=== PATIENT | female | born 1965 | race Caucasian/White ===

== ENCOUNTER → 2017-06-02 | Outpatient (REF) | payer MEDICARE, BC ==
[2017-06-02 16:27] LABS: BLOOD UREA NITROGEN 15 MG/DL (7-18); CREATININE FOR GFR 0.83 MG/DL (0.55-1.02); GLOMERULAR FILTRATION RATE > 60.0 (>51)
== END ==
LOC: M LABDRAW1 15:44
PROVIDERS: ATTEND Physical Medicine & Rehabilitation
DX: M51.36 Other intervertebral disc degeneration, lumbar region (principal)

== ENCOUNTER → 2017-06-09 | Outpatient (REF) | payer BC, MEDICARE ==
[2017-06-09 16:42] LABS: BLOOD UREA NITROGEN 14 MG/DL (7-18); CREATININE FOR GFR 0.71 MG/DL (0.55-1.02); GLOMERULAR FILTRATION RATE > 60.0 (>51)
== END ==
LOC: M LABDRAW1 15:38
PROVIDERS: ATTEND Physical Medicine & Rehabilitation
DX: M51.36 Other intervertebral disc degeneration, lumbar region (principal)

== ENCOUNTER → 2017-11-21 | Outpatient (REF) | payer BC, MEDICARE ==
[2017-11-21 16:08] LABS: CREATININE FOR GFR 0.76 MG/DL (0.55-1.02); GLOMERULAR FILTRATION RATE > 60.0 (>51)
[2017-11-21 16:08] LABS: BLOOD UREA NITROGEN 13 MG/DL (7-18)
== END ==
LOC: M LABDRAW1 15:30
DX: M51.37 Other intervertebral disc degeneration, lumbosacral region (principal)
CPT/HCPCS: 82565

== ENCOUNTER → 2018-01-17 | Outpatient (CLI) | payer BC, MEDICARE | LOC: M ADAMS 10:26 | DX: S60.222A Contusion of left hand, initial encounter (principal); X58.XXXA Exposure to other specified factors, initial encounter; Y92.89 Other specified places as the place of occurrence of the external cause; M19.042 Primary osteoarthritis, left hand | CPT/HCPCS: 73130 ==

== ENCOUNTER → 2018-03-10 | Outpatient (REF) | payer BC, MEDICARE ==
[2018-03-10 13:28] LABS: BASO % 0.6 % (0.0-1.0); EOS # 0.1 10^3/uL (0.0-0.50); EOS % 2.2 % (0.0-3.0); HEMATOCRIT 38.7 % (36.0-47.0); HEMOGLOBIN 12.9 g/dl (12.0-15.5); IMMATURE GRANULOCYTE % 0.3 % (0-3.0); LYMPH # 1.9 10^3/uL (1.5-4.5); LYMPH % 30.5 % (24.0-44.0); MEAN CORPUSCULAR HEMOGLOBIN 30.1 pg (27.0-33.0); MEAN CORPUSCULAR HGB CONC 33.3 g/dl (32.0-36.5); MEAN CORPUSCULAR VOLUME 90.4 fl (80.0-96.0); MONO # 0.4 10^3/uL (0.0-0.8); NEUTROPHILS # 3.7 10^3/uL (1.8-7.7); NEUTROPHILS % 59.4 % (36.0-66.0); PLATELET COUNT, AUTOMATED 261 10^3/uL (150-450); RED BLOOD COUNT 4.28 10^6/uL (4.00-5.40); RED CELL DISTRIBUTION WIDTH 12.9 % (11.5-14.5); WHITE BLOOD COUNT 6.3 10^3/uL (4.0-10.0)
[2018-03-10 13:47] LABS: ERYTHROCYTE SEDIMENTATION RATE 18 mm/hr (0-30)
[2018-03-10 14:09] LABS: C REACTIVE PROTEIN QUANTITATIV < 0.30 MG/DL (0.00-0.30); RHEUMATOID FACTOR QUANT < 10.0 IU/ML (<15.0)
[2018-03-10 14:09] LABS: URIC ACID 3.6 MG/DL (2.6-6.0)
[2018-03-14 00:09] LABS: ANTI DOUBLE STRAND-DNA AB <1 IU/mL (0-9); ANTINUCLEAR ANTIBODIES DIRECT Positive (Negative); Lyme Disease IgG/IgM Antibodie <0.91 ISR (0.00-0.90); Lyme Disease IgM Ab Quantitati <0.80 index (0.00-0.79); SJOGREN'S ANTI SS-A <0.2 AI (0.0-0.9); SJOGREN'S ANTI SS-B <0.2 AI (0.0-0.9); SMITH ANTIBODIES <0.2 AI (0.0-0.9)
== END ==
LOC: M LABDRAW1 11:39
DX: M25.442 Effusion, left hand (principal)
CPT/HCPCS: 84550

== ENCOUNTER → 2018-06-27 | Outpatient (REF) | payer BC, MEDICARE ==
[2018-06-27 12:13] LABS: HEMATOCRIT 39.4 % (36.0-47.0); HEMOGLOBIN 13.4 g/dl (12.0-15.5); MEAN CORPUSCULAR HEMOGLOBIN 30.8 pg (27.0-33.0); MEAN CORPUSCULAR VOLUME 90.6 fl (80.0-96.0); PLATELET COUNT, AUTOMATED 241 10^3/uL (150-450); RED BLOOD COUNT 4.35 10^6/uL (4.00-5.40); RED CELL DISTRIBUTION WIDTH 12.1 % (11.5-14.5); WHITE BLOOD COUNT 6.5 10^3/uL (4.0-10.0)
[2018-06-27 13:08] LABS: ALBUMIN 4.1 GM/DL (3.2-5.2); ALBUMIN/GLOBULIN RATIO 1.28 (1.00-1.93); ALKALINE PHOSPHATASE 93 U/L (45-117); ALT/SGPT 56 U/L (12-78); ANION GAP 7 MEQ/L (8-16); AST/SGOT 43 U/L (7-37); BILIRUBIN,DIRECT 0.1 MG/DL (0.0-0.2); BILIRUBIN,TOTAL 0.4 MG/DL (0.2-1.0); BLOOD UREA NITROGEN 19 MG/DL (7-18); CALCIUM LEVEL 8.9 MG/DL (8.5-10.1); CARBON DIOXIDE LEVEL 31 MEQ/L (21-32); CHLORIDE LEVEL 103 MEQ/L (98-107); CREATININE FOR GFR 0.69 MG/DL (0.55-1.30); GLOMERULAR FILTRATION RATE > 60.0 (>51); GLUCOSE, FASTING 84 MG/DL (70-100); PHOSPHORUS LEVEL 3.6 MG/DL (2.5-4.9); POTASSIUM SERUM 4.3 MEQ/L (3.5-5.1); SODIUM LEVEL 141 MEQ/L (136-145); TOTAL PROTEIN 7.3 GM/DL (6.4-8.2)
== END ==
LOC: M LABDRAW1 11:41
DX: B35.1 Tinea unguium (principal); Z79.899 Other long term (current) drug therapy
CPT/HCPCS: 80076

== ENCOUNTER → 2018-08-09 | Outpatient (REF) | payer BC, MEDICARE ==
[2018-08-09 16:54] LABS: ALBUMIN 3.9 GM/DL (3.2-5.2); ALBUMIN/GLOBULIN RATIO 1.34 (1.00-1.93); ALKALINE PHOSPHATASE 80 U/L (45-117); ALT/SGPT 27 U/L (12-78); ANION GAP 5 MEQ/L (8-16); AST/SGOT 17 U/L (7-37); BILIRUBIN,DIRECT 0.1 MG/DL (0.0-0.2); BILIRUBIN,TOTAL 0.3 MG/DL (0.2-1.0); BLOOD UREA NITROGEN 16 MG/DL (7-18); CALCIUM LEVEL 8.8 MG/DL (8.5-10.1); CARBON DIOXIDE LEVEL 34 MEQ/L (21-32); CHLORIDE LEVEL 102 MEQ/L (98-107); CREATININE FOR GFR 0.78 MG/DL (0.55-1.30); GLOMERULAR FILTRATION RATE > 60.0 (>51); GLUCOSE, FASTING 108 MG/DL (70-100); PHOSPHORUS LEVEL 2.8 MG/DL (2.5-4.9); POTASSIUM SERUM 3.3 MEQ/L (3.5-5.1); SODIUM LEVEL 141 MEQ/L (136-145); TOTAL PROTEIN 6.8 GM/DL (6.4-8.2)
[2018-08-09 16:58] LABS: HEMATOCRIT 38.7 % (36.0-47.0); MEAN CORPUSCULAR HEMOGLOBIN 30.2 pg (27.0-33.0); MEAN CORPUSCULAR HGB CONC 33.6 g/dl (32.0-36.5); PLATELET COUNT, AUTOMATED 287 10^3/uL (150-450); RED CELL DISTRIBUTION WIDTH 12.5 % (11.5-14.5); WHITE BLOOD COUNT 7.1 10^3/uL (4.0-10.0)
== END ==
LOC: M LABDRAW1 15:48
DX: B35.1 Tinea unguium (principal); Z79.899 Other long term (current) drug therapy
CPT/HCPCS: 80076

== ENCOUNTER → 2018-09-09 | Outpatient (CLI) | payer BC, MEDICARE | LOC: M ADAMS 11:32 | DX: E66.01 Morbid (severe) obesity due to excess calories (principal); E78.2 Mixed hyperlipidemia ==

== ENCOUNTER → 2018-09-09 | Outpatient (REF) | payer BC, MEDICARE ==
[2018-09-09 17:42] LABS: BASO % 0.7 % (0.0-1.0); EOS # 0.2 10^3/uL (0.0-0.50); EOS % 2.6 % (0.0-3.0); HEMATOCRIT 42.8 % (36.0-47.0); HEMOGLOBIN 14.3 g/dl (12.0-15.5); IMMATURE GRANULOCYTE % 0.3 % (0-3.0); LYMPH # 1.6 10^3/uL (1.5-4.5); MEAN CORPUSCULAR HEMOGLOBIN 30.4 pg (27.0-33.0); MEAN CORPUSCULAR HGB CONC 33.4 g/dl (32.0-36.5); MEAN CORPUSCULAR VOLUME 91.1 fl (80.0-96.0); MONO # 0.4 10^3/uL (0.0-0.8); MONO % 7.1 % (0.0-5.0); NEUTROPHILS # 3.8 10^3/uL (1.8-7.7); NEUTROPHILS % 62.3 % (36.0-66.0); PLATELET COUNT, AUTOMATED 275 10^3/uL (150-450); RED CELL DISTRIBUTION WIDTH 13.6 % (11.5-14.5); WHITE BLOOD COUNT 6.1 10^3/uL (4.0-10.0)
[2018-09-09 18:06] LABS: ALBUMIN 3.7 GM/DL (3.2-5.2); ALBUMIN/GLOBULIN RATIO 1.12 (1.00-1.93); ALKALINE PHOSPHATASE 88 U/L (45-117); ALT/SGPT 32 U/L (12-78); ANION GAP 8 MEQ/L (8-16); AST/SGOT 29 U/L (7-37); BILIRUBIN,TOTAL 0.4 MG/DL (0.2-1.0); BLOOD UREA NITROGEN 17 MG/DL (7-18); CALCIUM LEVEL 8.7 MG/DL (8.5-10.1); CARBON DIOXIDE LEVEL 30 MEQ/L (21-32); CHLORIDE LEVEL 103 MEQ/L (98-107); CHOLESTEROL LEVEL 232 MG/DL (<200); CHOLESTEROL RISK RATIO 3.462 (<5); CREATININE FOR GFR 0.76 MG/DL (0.55-1.30); GLOMERULAR FILTRATION RATE > 60.0 (>51); GLUCOSE, FASTING 93 MG/DL (70-100); HDL CHOLESTEROL 67 MG/DL (>40); LDL CHOLESTEROL 128 MG/DL (<100); NON-HDL-C 165 MG/DL; POTASSIUM SERUM 4.1 MEQ/L (3.5-5.1); SODIUM LEVEL 141 MEQ/L (136-145); TRIGLYCERIDES LEVEL 186 MG/DL (<150)
== END ==
LOC: M SFHCLERA 11:21
DX: E66.01 Morbid (severe) obesity due to excess calories (principal); E78.2 Mixed hyperlipidemia
CPT/HCPCS: 84443

== ENCOUNTER → 2018-09-18 | Outpatient (CLI) | payer BC, MEDICARE | LOC: M ADAMS 11:17 | DX: M25.561 Pain in right knee (principal) | CPT/HCPCS: 73564 ==

== ENCOUNTER → 2019-01-22 | Outpatient (CLI) | payer BC, MEDICARE ==
--- NOTE | 2019-01-23 05:17 | REP ---
Clinical: Left knee pain. Technique: AP, lateral, bilateral oblique and sunrise views of the left knee. Findings: Mild degenerative changes include subtle increase sclerosis along the tibial plateau with minimal joint space narrowing and very subtle early spurring. No acute fracture dislocation. No effusion. Impression: Mild degenerative change. Electronically Signed by Jose Luis Brock MD 01/23/2019 05:08 A
== END ==
LOC: M ADAMS 13:23
PROVIDERS: ATTEND Physician Assistant
DX: M25.562 Pain in left knee (principal)

== ENCOUNTER → 2019-04-03 | Outpatient (REF) | payer MEDICARE, BC ==
[2019-04-03 20:21] LABS: BLOOD UREA NITROGEN 22 MG/DL (7-18); CALCIUM LEVEL 8.9 MG/DL (8.5-10.1); CARBON DIOXIDE LEVEL 30 MEQ/L (21-32); CHLORIDE LEVEL 100 MEQ/L (98-107); CREATININE FOR GFR 0.64 MG/DL (0.55-1.30); GLOMERULAR FILTRATION RATE > 60.0 (>51); GLUCOSE, FASTING 77 MG/DL (70-100); MAGNESIUM LEVEL 2.7 MG/DL (1.8-2.4); POTASSIUM SERUM 3.7 MEQ/L (3.5-5.1); SODIUM LEVEL 139 MEQ/L (136-145)
== END ==
LOC: M SFHCADAM 16:08
PROVIDERS: ATTEND Physician Assistant Medical
DX: E66.01 Morbid (severe) obesity due to excess calories (principal); E78.2 Mixed hyperlipidemia; F34.1 Dysthymic disorder; I73.00 Raynaud's syndrome without gangrene

== ENCOUNTER → 2019-06-06 | Outpatient (CLI) | payer BC, MEDICARE ==
[~2019-06-06] MED LIST: CYCL10TA PO; GABA-843; KETO10TAB PO; PARO20TA3
--- NOTE | 2019-06-06 13:58 | REP ---
Clinical: Contusion. Technique: AP, lateral, bilateral oblique views left foot . Findings: The osseous structures and joint spaces are intact and normal. There is no evidence for acute fracture or dislocation. Surrounding soft tissues are unremarkable. No subcutaneous emphysema or radiodense foreign body. Impression: Age-related degenerative changes. No acute fracture or dislocation. Electronically Signed by Jose Luis Brock MD 06/06/2019 01:49 P
== END ==
LOC: M ADAMS 13:29
PROVIDERS: ATTEND Physician Assistant Medical
DX: M19.072 Primary osteoarthritis, left ankle and foot (principal); S90.32XA Contusion of left foot, initial encounter; W22.8XXA Striking against or struck by other objects, initial encounter; Y92.9 Unspecified place or not applicable

== ENCOUNTER 2019-08-06 10:09 | Emergency (ER) | payer BC, MEDICARE ==
[~2019-08-06] VITALS: Ht 157.5 cm; Wt 71.2 kg
[2019-08-06] MEDS ORDERED: PARO20TA3 (10:17)
[2019-08-06] MEDS ORDERED: GABA-843 (10:17)
[2019-08-06] MEDS ORDERED: ACETAMINOPHEN 325 MG TAB PO ONE (12:00)
[2019-08-06] MEDS ORDERED: KETOROLAC 60 MG/2 ML VIAL (J1885) IM ONE (12:00)
[2019-08-06] MEDS ORDERED: CYCL10TA PO (12:43)
[2019-08-06] MEDS ORDERED: KETO10TAB PO (12:43)
[2019-08-06 12:54] VITALS: BP 133/82
== END 2019-08-06 12:55 | disposition home or self-care (01) ==
LOC: M ED 10:09
DX: M54.31 Sciatica, right side (principal); M54.5 Low back pain; G89.29 Other chronic pain; Z79.891 Long term (current) use of opiate analgesic; Z79.899 Other long term (current) drug therapy
CPT/HCPCS: 99283; J1885

== ENCOUNTER → 2020-01-14 | Outpatient (REF) | payer MEDICARE, BC ==
[2020-01-14 18:04] LABS: BLOOD UREA NITROGEN 22 MG/DL (7-18); CREATININE FOR GFR 0.66 MG/DL (0.55-1.30); GLOMERULAR FILTRATION RATE > 60.0 (>51)
== END ==
LOC: M LABDRWAD 16:56
PROVIDERS: ATTEND Physical Medicine & Rehabilitation
DX: M51.37 Other intervertebral disc degeneration, lumbosacral region (principal)

== ENCOUNTER → 2020-01-31 | Outpatient (REF) | payer MEDICARE, BC ==
[2020-01-31 16:13] LABS: BASO % 0.5 % (0.0-1.0); EOS # 0.1 10^3/uL (0.0-0.5); EOS % 1.7 % (0.0-3.0); HEMATOCRIT 43.4 % (36.0-47.0); HEMOGLOBIN 14.6 g/dl (12.0-15.5); LYMPH # 1.8 10^3/uL (1.5-5.0); LYMPH % 30.7 % (24.0-44.0); MEAN CORPUSCULAR HEMOGLOBIN 30.6 pg (27.0-33.0); MEAN CORPUSCULAR HGB CONC 33.6 g/dl (32.0-36.5); MONO # 0.4 10^3/uL (0.0-0.8); MONO % 7.6 % (0.0-5.0); NEUTROPHILS # 3.4 10^3/uL (1.5-8.5); NEUTROPHILS % 59.3 % (36.0-66.0); PLATELET COUNT, AUTOMATED 251 10^3/uL (150-450); RED BLOOD COUNT 4.77 10^6/uL (4.00-5.40); WHITE BLOOD COUNT 5.8 10^3/uL (4.0-10.0)
[2020-01-31 16:22] LABS: ALBUMIN 4.3 GM/DL (3.2-5.2); ALT/SGPT 38 U/L (12-78); BILIRUBIN,TOTAL 0.5 MG/DL (0.2-1.0); BLOOD UREA NITROGEN 25 MG/DL (7-18); C REACTIVE PROTEIN QUANTITATIV < 0.30 MG/DL (0.00-0.30); CALCIUM LEVEL 9.6 MG/DL (8.5-10.1); CARBON DIOXIDE LEVEL 30 MEQ/L (21-32); CHLORIDE LEVEL 105 MEQ/L (98-107); COMPLEMENT C3 118 MG/DL (90-180); COMPLEMENT C4 22 MG/DL (10-40); CREATININE FOR GFR 0.66 MG/DL (0.55-1.30); GLOMERULAR FILTRATION RATE > 60.0 (>51); GLUCOSE, FASTING 75 MG/DL (70-100); POTASSIUM SERUM 3.5 MEQ/L (3.5-5.1); SODIUM LEVEL 139 MEQ/L (136-145); TOTAL PROTEIN 7.4 GM/DL (6.4-8.2)
[2020-01-31 16:26] LABS: CREATININE,RANDOM URINE 41.6 MG/DL
[2020-01-31 16:34] LABS: ERYTHROCYTE SEDIMENTATION RATE 19 mm/hr (0-30)
[2020-02-04 14:15] LABS: ANA (HEP2) Negative (.); ANTI CENTROMERE ANTIBODY <0.2 AI (0.0-0.9); ANTI DS-DNA AB Negative (Negative); ANTI SCLERODERMA ANTIBODIES <0.2 AI (0.0-0.9); RNP ANTIBODY 1.3 AI (0.0-0.9); SMITHS ANTIBODY < 0.2 AI (0.0-0.9); SSA SJOGRENS A <0.2 AI (0.0-0.9); SSB SJOGRENS B <0.2 AI (0.0-0.9)
== END ==
LOC: M SFHCRHEU 11:57
PROVIDERS: ATTEND Internal Medicine
DX: R76.8 Other specified abnormal immunological findings in serum (principal)

== ENCOUNTER → 2020-04-11 | Outpatient (CLI) | payer MEDICARE, BC ==
[~2020-04-11] MED LIST changes: +CYCL-707 PO; -CYCL10TA PO
--- NOTE | 2020-04-11 16:15 | REP ---
ULTRASOUND LEFT UPPER ARM: Real-time sonographic evaluation of left upper arm performed. There is a palpable lump at that location. At the site of the palpable lump, there is an oval hyperechoic mass which measures 5.7 x 5.3 x 1.7 cm. 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 No other abnormalities are seen in this region. MRI is recommended of the left upper arm to confirm the diagnosis of a simple lipoma and rule out the possibility of sarcoma.
== END ==
LOC: M WHC 11:52
PROVIDERS: ATTEND Physician Assistant Medical
DX: R22.32 Localized swelling, mass and lump, left upper limb (principal)

== ENCOUNTER → 2020-08-08 | Outpatient (REF) | payer BC, MEDICARE ==
[2020-08-08 13:09] LABS: BASO % 0.7 % (0.0-1.0); EOS # 0.2 10^3/uL (0.0-0.5); HEMATOCRIT 44.6 % (36.0-47.0); HEMOGLOBIN 14.6 g/dl (12.0-15.5); LYMPH # 1.7 10^3/uL (1.5-5.0); LYMPH % 28.2 % (24.0-44.0); MEAN CORPUSCULAR HEMOGLOBIN 30.1 pg (27.0-33.0); MEAN CORPUSCULAR HGB CONC 32.7 g/dl (32.0-36.5); MONO # 0.6 10^3/uL (0.0-0.8); MONO % 9.6 % (0.0-5.0); NEUTROPHILS # 3.5 10^3/uL (1.5-8.5); NEUTROPHILS % 58.2 % (36.0-66.0); PLATELET COUNT, AUTOMATED 281 10^3/uL (150-450); RED BLOOD COUNT 4.85 10^6/uL (4.00-5.40); WHITE BLOOD COUNT 6.1 10^3/uL (4.0-10.0)
[2020-08-08 13:57] LABS: ALBUMIN 3.9 GM/DL (3.2-5.2); ALT/SGPT 43 U/L (12-78); BILIRUBIN,TOTAL 0.3 MG/DL (0.2-1.0); BLOOD UREA NITROGEN 22 MG/DL (7-18); CALCIUM LEVEL 9.6 MG/DL (8.5-10.1); CARBON DIOXIDE LEVEL 31 MEQ/L (21-32); CHLORIDE LEVEL 105 MEQ/L (98-107); CHOLESTEROL LEVEL 261 MG/DL (<200); CHOLESTEROL RISK RATIO 3.389 (<5); CREATININE FOR GFR 0.81 MG/DL (0.55-1.30); GLOMERULAR FILTRATION RATE > 60.0 (>51); GLUCOSE, FASTING 91 MG/DL (70-100); HDL CHOLESTEROL 77 MG/DL (>40); LDL CHOLESTEROL 175 MG/DL (<100); MAGNESIUM LEVEL 2.5 MG/DL (1.8-2.4); NON-HDL-C 184 MG/DL; POTASSIUM SERUM 5.2 MEQ/L (3.5-5.1); SODIUM LEVEL 141 MEQ/L (136-145); TOTAL 25(OH) VITAMIN D 41.6 NG/ML (30.0-100.0); TOTAL PROTEIN 6.9 GM/DL (6.4-8.2); TRIGLYCERIDES LEVEL 46 MG/DL (<150)
== END ==
LOC: M SFHCADAM 08:31
PROVIDERS: ATTEND Physician Assistant Medical
DX: E83.41 Hypermagnesemia (principal); I73.00 Raynaud's syndrome without gangrene; E66.01 Morbid (severe) obesity due to excess calories; E78.2 Mixed hyperlipidemia; F34.1 Dysthymic disorder

== ENCOUNTER 2021-03-05 11:41 | Emergency (ER) | payer BC, MEDICARE ==
[~2021-03-05] VITALS: Ht 157.5 cm; Wt 71.6 kg
[~2021-03-05 11:41] MED LIST changes: +GABA-282 PO; -GABA-843
[2021-03-05] MEDS ORDERED: MELO15TA28 (11:50)
--- NOTE | 2021-03-05 12:09 | REP ---
INDICATION: constipation. COMPARISON: None. TECHNIQUE: Supine and erect views of the abdomen, frontal view chest. FINDINGS: There is no evidence of free intraperitoneal air, with no evidence of obstructive bowel gas pattern. There is a moderate to large amount of fecal material the right colon. No dilated small bowel loops are seen. Multiple phleboliths are seen in the pelvis. There are mild degenerative changes of the spine and left hip. Total right hip prosthesis is noted. No infiltrate is seen in either lung. The heart and mediastinum are within normal limits. IMPRESSION: No free air or obstruction. Moderate to large amount of fecal material right colon. <Electronically signed by Lio Velez > 03/05/21 [id number]
[2021-03-05] MEDS ORDERED: BISACODYL 10 MG SUPP PR ONE (12:10)
[2021-03-05] MEDS ORDERED: MAGNESIUM CITRATE 300 ML BTL PO ONE (13:30)
[2021-03-05] MEDS ORDERED: DULC10SU2 PR (13:31)
[2021-03-05] MEDS ORDERED: COLA100C5 PO (13:31)
[2021-03-05 13:50] VITALS: BP 174/87
== END 2021-03-05 13:53 | disposition home or self-care (01) ==
LOC: M ED 11:41
DX: K59.00 Constipation, unspecified (principal)

== ENCOUNTER → 2021-07-30 | Outpatient (CLI) | payer BC, MEDICARE ==
[~2021-07-30] MED LIST changes: +COLA100C5 PO; +DULC10SU2 PR; +DULO1CAP4 PO; +MELO15TA28 PO; -PARO20TA3; +PARO20TA3 PO
== END ==
LOC: M LABSMTC 09:56
PROVIDERS: ATTEND Anesthesiology
DX: Z01.812 Encounter for preprocedural laboratory examination (principal); Z20.822 Contact with and (suspected) exposure to COVID-19

== ENCOUNTER 2021-08-04 10:24 | Day surgery (SDC) | payer BC, MEDICARE ==
[~2021-08-04] VITALS: Ht 157.5 cm; Wt 75.0 kg
[~2021-08-04 10:24] MED LIST changes: +NS 1,000 ML IV ONE
[2021-08-04] MEDS ORDERED: LIDOCAINE 2% 100MG/5ML SDV (FOR ANES.) As Ordered ONE (13:04)
[2021-08-04] MEDS ORDERED: propofoL 200 MG/20 ML VIAL As Ordered ONE (13:04)
--- NOTE | 2021-08-04 13:17 | ROOR ---
Patient Name: Scott Reich Procedure Date: 08/04/2021 12:11 PM Date of : 1965 Age: 56 Room: [facility] Gender: Female Note Status: Finalized Procedure: Colonoscopy Indications: Hematochezia, Constipation Providers: Suleman Smith MD Referring MD: GIANNI Kelly Requesting Provider: Medicines: Monitored Anesthesia Care Complications: No immediate complications. Procedure: Pre-Anesthesia Assessment: - The heart rate, respiratory rate, oxygen saturations, blood pressure, adequacy of pulmonary ventilation, and response to care were monitored throughout the procedure. The Colonoscope was introduced through the anus with the intention of advancing to the cecum. The scope was advanced to the hepatic flexure before the procedure was aborted. Medications were given. The quality of the bowel preparation was 90 percent obscured. Findings: The perianal and digital rectal examinations were normal. (Colon Prep was POOR, Inadequate Visualisation) A 5 mm polyp was found in the rectum. The polyp was sessile. The polyp was removed with a cold snare. Resection and retrieval were complete. To prevent bleeding after the polypectomy, one hemostatic clip was successfully placed. Impression: - (Colon Prep was POOR, Inadequate Visualisation) - One 5 mm polyp in the distal rectum, removed with a cold snare. Resected and retrieved. Clip was placed. Recommendation: - Repeat colonoscopy at the next available appointment because the bowel preparation was poor. - My office will call you to reschedule the procedure. Procedure Code(s): --- Professional --- 47299, 52, Colonoscopy, flexible; with removal of tumor(s), polyp(s), or other lesion(s) by snare technique Diagnosis Code(s): --- Professional --- K92.1, Melena (includes Hematochezia) K62.1, Rectal polyp K59.00, Constipation, unspecified CPT copyright 2019 [employer]. All rights reserved. The codes documented in this report are preliminary and upon chicken handler review may be revised to meet current compliance requirements. Suleman Smith MD Suleman Smith MD 08/04/2021 1:17:22 PM Electronically signed by Suleman Smith MD Number of Addenda: 0 Note Initiated On: 08/04/2021 12:11 PM Estimated Blood Loss: Estimated blood loss: none.
[2021-08-04 13:46] VITALS: BP 129/89
== END 2021-08-04 13:55 | disposition home or self-care (01) ==
LOC: M OPP 10:24
PROVIDERS: ATTEND Internal Medicine Gastroenterology
DX: K62.1 Rectal polyp (principal); K92.1 Melena; K59.00 Constipation, unspecified; Z79.899 Other long term (current) drug therapy

== ENCOUNTER → 2021-09-10 | Outpatient (REF) | payer BC, MEDICARE ==
[~2021-09-10] MED LIST changes: -NS 1,000 ML IV ONE
== END ==
LOC: M SFHCADAM 14:06
PROVIDERS: ATTEND Physician Assistant Medical
DX: Z53.9 Procedure and treatment not carried out, unspecified reason (principal); E66.01 Morbid (severe) obesity due to excess calories; E83.41 Hypermagnesemia; E78.2 Mixed hyperlipidemia; F34.1 Dysthymic disorder; I73.00 Raynaud's syndrome without gangrene

== ENCOUNTER → 2021-09-14 | Outpatient (REF) | payer BC, MEDICARE ==
[2021-09-14 12:39] LABS: BASO # 0.1 10^3/uL (0.0-0.2); BASO % 0.8 % (0.0-1.0); EOS # 0.2 10^3/uL (0.0-0.5); EOS % 3.5 % (0.0-3.0); HEMATOCRIT 41.3 % (36.0-47.0); LYMPH % 31.8 % (24.0-44.0); MEAN CORPUSCULAR HEMOGLOBIN 30.7 pg (27.0-33.0); MEAN CORPUSCULAR HGB CONC 33.9 g/dl (32.0-36.5); MEAN CORPUSCULAR VOLUME 90.6 fl (80.0-96.0); MONO # 0.4 10^3/uL (0.0-0.8); MONO % 6.9 % (2.0-8.0); NEUTROPHILS # 3.5 10^3/uL (1.5-8.5); NEUTROPHILS % 56.5 % (36.0-66.0); PLATELET COUNT, AUTOMATED 248 10^3/uL (150-450); RED BLOOD COUNT 4.56 10^6/uL (4.00-5.40); WHITE BLOOD COUNT 6.2 10^3/uL (4.0-10.0)
[2021-09-14 13:59] LABS: ALBUMIN 3.7 GM/DL (3.2-5.2); ALT/SGPT 32 U/L (12-78); BILIRUBIN,TOTAL 0.4 MG/DL (0.2-1.0); BLOOD UREA NITROGEN 17 MG/DL (7-18); CALCIUM LEVEL 9.2 MG/DL (8.5-10.1); CARBON DIOXIDE LEVEL 32 MEQ/L (21-32); CHLORIDE LEVEL 104 MEQ/L (98-107); CHOLESTEROL LEVEL 271 MG/DL (<200); CHOLESTEROL RISK RATIO 3.871 (<5); CREATININE FOR GFR 0.73 MG/DL (0.55-1.30); GLOMERULAR FILTRATION RATE > 60.0 (>51); GLUCOSE, FASTING 91 MG/DL (70-100); HDL CHOLESTEROL 70 MG/DL (>40); LDL CHOLESTEROL 181 MG/DL (<100); NON-HDL-C 201 MG/DL; POTASSIUM SERUM 4.8 MEQ/L (3.5-5.1); SODIUM LEVEL 142 MEQ/L (136-145); TRIGLYCERIDES LEVEL 101 MG/DL (<150)
== END ==
LOC: M SFHCADAM 08:32
PROVIDERS: ATTEND Physician Assistant Medical
DX: E66.01 Morbid (severe) obesity due to excess calories (principal); E83.41 Hypermagnesemia; E78.2 Mixed hyperlipidemia; F34.1 Dysthymic disorder; I73.00 Raynaud's syndrome without gangrene

== ENCOUNTER → 2022-01-20 | Outpatient (REF) | payer BC, MEDICARE ==
[2022-01-20 18:10] LABS: ALBUMIN 4.1 GM/DL (3.2-5.2); ALT/SGPT 36 U/L (12-78); BILIRUBIN,TOTAL 0.4 MG/DL (0.2-1.0); BLOOD UREA NITROGEN 15 MG/DL (7-18); CALCIUM LEVEL 9.4 MG/DL (8.5-10.1); CARBON DIOXIDE LEVEL 34 MEQ/L (21-32); CHLORIDE LEVEL 99 MEQ/L (98-107); CREATININE FOR GFR 0.77 MG/DL (0.55-1.30); GLOMERULAR FILTRATION RATE > 60.0 (>51); GLUCOSE, FASTING 91 MG/DL (70-100); POTASSIUM SERUM 3.5 MEQ/L (3.5-5.1); SODIUM LEVEL 138 MEQ/L (136-145); TOTAL PROTEIN 7.3 GM/DL (6.4-8.2)
== END ==
LOC: M LABDRWAD 15:31
PROVIDERS: ATTEND Physician Assistant Surgical
DX: M51.37 Other intervertebral disc degeneration, lumbosacral region (principal)

== ENCOUNTER 2022-03-12 15:17 | Emergency (ER) | payer BC, MEDICARE ==
[~2022-03-12] VITALS: Ht 157.5 cm; Wt 84.1 kg
[2022-03-12 18:15] VITALS: BP 177/87
[2022-03-12] MEDS ORDERED: predniSONE 20 MG TAB PO ONE (18:15)
[2022-03-12] MEDS ORDERED: PERCOCET 5MG/325MG TAB PO ONE (18:15)
[2022-03-12] MEDS ORDERED: PRED10TA2 PO (18:29)
[2022-03-12] MEDS ORDERED: PERC5TAB12 PO (18:29)
== END 2022-03-12 19:17 | disposition home or self-care (01) ==
LOC: M ED 15:17
DX: M54.16 Radiculopathy, lumbar region (principal); M54.30 Sciatica, unspecified side; Z79.899 Other long term (current) drug therapy
CPT/HCPCS: 99283; J7512

== ENCOUNTER → 2022-06-25 | Outpatient (CLI) | payer MEDICARE, BC ==
[~2022-06-25] MED LIST changes: +PERC5TAB12 PO; +PRED10TA2 PO
[2022-06-25 13:41] LABS: BLOOD UREA NITROGEN 16 MG/DL (7-18); CREATININE FOR GFR 0.75 MG/DL (0.55-1.30); GLOMERULAR FILTRATION RATE > 60.0 (>51)
== END ==
LOC: M ADAMS 10:27
PROVIDERS: ATTEND Physician Assistant Surgical
DX: M51.37 Other intervertebral disc degeneration, lumbosacral region (principal); M47.817 Spondylosis without myelopathy or radiculopathy, lumbosacral region; M48.07 Spinal stenosis, lumbosacral region

== ENCOUNTER → 2022-07-25 | Outpatient (CLI) | payer BC, MEDICARE | LOC: M LABSMTC 11:57 | PROVIDERS: ATTEND Physician Assistant Surgical | DX: Z01.812 Encounter for preprocedural laboratory examination (principal); Z20.822 Contact with and (suspected) exposure to COVID-19 ==

== ENCOUNTER → 2022-10-14 | Outpatient (REF) | payer BC, MEDICARE ==
[2022-10-14 13:48] LABS: BASO # 0.1 10^3/uL (0.0-0.2); BASO % 0.9 % (0.0-1.0); EOS # 0.2 10^3/uL (0.0-0.5); EOS % 3.1 % (0.0-3.0); HEMATOCRIT 44.4 % (36.0-47.0); HEMOGLOBIN 14.3 g/dl (12.0-15.5); LYMPH # 1.6 10^3/uL (1.5-5.0); LYMPH % 24.3 % (24.0-44.0); MEAN CORPUSCULAR HEMOGLOBIN 29.9 pg (27.0-33.0); MEAN CORPUSCULAR HGB CONC 32.2 g/dl (32.0-36.5); MEAN CORPUSCULAR VOLUME 92.7 fl (80.0-96.0); MONO # 0.6 10^3/uL (0.0-0.8); MONO % 9.1 % (2.0-8.0); PLATELET COUNT, AUTOMATED 262 10^3/uL (150-450); RED BLOOD COUNT 4.79 10^6/uL (4.00-5.40); WHITE BLOOD COUNT 6.4 10^3/uL (4.0-10.0)
[2022-10-14 14:04] LABS: ALBUMIN 3.7 G/DL (3.2-5.2); ALKALINE PHOSPHATASE 106 U/L (46-116); ALT/SGPT 19 U/L (7.0-40); AST/SGOT 24 U/L (<34); BILIRUBIN,TOTAL 0.2 MG/DL (0.3-1.2); BLOOD UREA NITROGEN 20 MG/DL (9-23); CALCIUM LEVEL 8.8 MG/DL (8.5-10.1); CARBON DIOXIDE LEVEL 31 MMOL/L (20-31); CHLORIDE LEVEL 102 MMOL/L (98-107); CHOLESTEROL LEVEL 247 MG/DL (<200); CHOLESTEROL RISK RATIO 3.66 (<5); CREATININE FOR GFR 0.62 MG/DL (0.55-1.30); GLOMERULAR FILTRATION RATE > 60.0 (>51); GLUCOSE, FASTING 93 MG/DL (60-100); HDL CHOLESTEROL 67.4 MG/DL (>40); LDL CHOLESTEROL 149.6 MG/DL (<100); NON-HDL-C 180 MG/DL; POTASSIUM SERUM 4.2 MMOL/L (3.5-5.1); SODIUM LEVEL 141 MMOL/L (136-145); TOTAL PROTEIN 6.6 G/DL (5.7-8.2); TRIGLYCERIDES LEVEL 150 MG/DL (<150)
[2022-10-14 14:05] LABS: THYROID STIMULATING HORMONE 3.025 uIU/ML (0.55-4.78)
== END ==
LOC: M SFHCADAM 07:55
PROVIDERS: ATTEND Physician Assistant Medical
DX: I10 Essential (primary) hypertension (principal); E66.01 Morbid (severe) obesity due to excess calories; F32.1 Major depressive disorder, single episode, moderate

== ENCOUNTER → 2022-11-16 | Outpatient (CLI) | payer BC, MEDICARE | LOC: M LABSMTC 09:56 | PROVIDERS: ATTEND Anesthesiology | DX: Z01.812 Encounter for preprocedural laboratory examination (principal); Z20.822 Contact with and (suspected) exposure to COVID-19 ==

== ENCOUNTER 2022-11-19 07:54 | Day surgery (SDC) | payer BC, MEDICARE ==
[~2022-11-19] VITALS: Ht 157.5 cm; Wt 85.8 kg
[~2022-11-19 07:54] MED LIST changes: +NS 1,000 ML IV ONE
[2022-11-19] MEDS ORDERED: propofoL 200 MG/20 ML VIAL As Ordered ONE (09:35)
[2022-11-19 09:55] VITALS: BP 185/83
== END 2022-11-19 10:10 | disposition home or self-care (01) ==
LOC: M OPP 07:54
PROVIDERS: ATTEND Internal Medicine Gastroenterology
DX: Z86.010 Personal history of colon polyps (principal); D12.2 Benign neoplasm of ascending colon; Z79.1 Long term (current) use of non-steroidal anti-inflammatories (NSAID); Z79.2 Long term (current) use of antibiotics; Z79.899 Other long term (current) drug therapy; Z88.6 Allergy status to analgesic agent; Z80.51 Family history of malignant neoplasm of kidney; K62.5 Hemorrhage of anus and rectum

== ENCOUNTER → 2023-09-27 | Outpatient (REF) | payer BC, MEDICARE ==
[~2023-09-27] MED LIST changes: -NS 1,000 ML IV ONE
[2023-09-27 13:30] LABS: HEMATOCRIT 44.6 % (36.0-47.0); HEMOGLOBIN 14.8 g/dl (12.0-15.5); MEAN CORPUSCULAR HEMOGLOBIN 30.3 pg (27.0-33.0); MEAN CORPUSCULAR HGB CONC 33.2 g/dl (32.0-36.5); MEAN CORPUSCULAR VOLUME 91.4 fl (80.0-96.0); PLATELET COUNT, AUTOMATED 283 10^3/uL (150-450); RED BLOOD COUNT 4.88 10^6/uL (4.00-5.40); WHITE BLOOD COUNT 8.6 10^3/uL (4.0-10.0)
[2023-09-27 14:00] LABS: LIPASE 30 U/L (12-53)
[2023-09-27 14:01] LABS: AMYLASE 47 U/L (30-118); HEMOGLOBIN A1c 5.3 % (4.0-6.0)
[2023-09-27 14:02] LABS: ALKALINE PHOSPHATASE 96 U/L (46-116); ALT/SGPT 36 U/L (7.0-40); AST/SGOT 31 U/L (<34); BILIRUBIN,TOTAL 0.7 MG/DL (0.3-1.2); BLOOD UREA NITROGEN 15 MG/DL (9-23); CALCIUM LEVEL 9.8 MG/DL (8.5-10.1); CARBON DIOXIDE LEVEL 32 MMOL/L (20-31); CHLORIDE LEVEL 103 MMOL/L (98-107); CHOLESTEROL LEVEL 275 MG/DL (<200); CHOLESTEROL RISK RATIO 3.85 (<5); GLOMERULAR FILTRATION RATE > 60.0 (>51); GLUCOSE, FASTING 95 MG/DL (60-100); HDL CHOLESTEROL 71.4 MG/DL (>40); NON-HDL-C 203.6 MG/DL; POTASSIUM SERUM 4.7 MMOL/L (3.5-5.1); SODIUM LEVEL 141 MMOL/L (136-145); TOTAL PROTEIN 7.2 G/DL (5.7-8.2); TRIGLYCERIDES LEVEL 153 MG/DL (<150)
[2023-09-27 14:03] LABS: THYROID STIMULATING HORMONE 2.761 uIU/ML (0.55-4.78)
== END ==
LOC: M LABDRWAD 12:41
PROVIDERS: ATTEND Dermatology
DX: Z13.29 Encounter for screening for other suspected endocrine disorder (principal)

== ENCOUNTER → 2023-10-19 | Outpatient (CLI) | payer BC, MEDICARE | LOC: M ADAMS 09:19 | PROVIDERS: ATTEND Physician Assistant Medical | DX: M25.562 Pain in left knee (principal) ==

== ENCOUNTER → 2023-10-24 | Outpatient (CLI) | payer BC, MEDICARE | LOC: M RAD 10:17 | PROVIDERS: ATTEND Physician Assistant Medical | DX: M79.605 Pain in left leg (principal) ==

== ENCOUNTER → 2023-12-17 | Outpatient (CLI) | payer BC, MEDICARE | LOC: M RAD 13:08 | PROVIDERS: ATTEND Podiatrist Foot & Ankle Surgery | DX: M79.671 Pain in right foot (principal) ==

== ENCOUNTER 2024-01-23 13:50 | Emergency (ER) | payer BC, MEDICARE ==
[~2024-01-23] VITALS: Ht 157.5 cm; Wt 84.8 kg
[2024-01-23 13:52] VITALS: TEMP 98.1
[2024-01-23] MEDS ORDERED: SIMV20TA22 (14:05)
[2024-01-23] MEDS ORDERED: CHLO125TA (14:05)
[2024-01-23] MEDS ORDERED: PARO40TA2 (14:05)
[2024-01-23 15:07] LABS: BASO # 0.1 10^3/uL (0.0-0.2); BASO % 0.5 % (0.0-1.0); EOS # 0.1 10^3/uL (0.0-0.5); EOS % 0.6 % (0.0-3.0); HEMATOCRIT 48.1 % (36.0-47.0); HEMOGLOBIN 16.6 g/dl (12.0-15.5); LYMPH # 2.3 10^3/uL (1.5-5.0); MEAN CORPUSCULAR HEMOGLOBIN 30.7 pg (27.0-33.0); MEAN CORPUSCULAR HGB CONC 34.5 g/dl (32.0-36.5); MEAN CORPUSCULAR VOLUME 88.9 fl (80.0-96.0); MONO # 1.1 10^3/uL (0.0-0.8); MONO % 9.9 % (2.0-8.0); NEUTROPHILS # 7.5 10^3/uL (1.5-8.5); NEUTROPHILS % 67.7 % (36.0-66.0); PLATELET COUNT, AUTOMATED 304 10^3/uL (150-450); RED BLOOD COUNT 5.41 10^6/uL (4.00-5.40); WHITE BLOOD COUNT 11.1 10^3/uL (4.0-10.0)
[2024-01-23 15:34] LABS: LIPASE 31 U/L (12-53)
[2024-01-23 15:37] LABS: ALBUMIN 3.9 G/DL (3.2-5.2); ALKALINE PHOSPHATASE 78 U/L (46-116); ALT/SGPT 32 U/L (7.0-40); AST/SGOT 29 U/L (<34); BILIRUBIN,DIRECT 0.2 MG/DL (<0.4); BILIRUBIN,TOTAL 0.6 MG/DL (0.3-1.2); BLOOD UREA NITROGEN 22 MG/DL (9-23); CALCIUM LEVEL 9.9 MG/DL (8.5-10.1); CARBON DIOXIDE LEVEL 34 MMOL/L (20-31); CHLORIDE LEVEL 95 MMOL/L (98-107); CREATININE FOR GFR 0.62 MG/DL (0.55-1.30); GLOMERULAR FILTRATION RATE > 60.0 (>51); GLUCOSE, FASTING 94 MG/DL (60-100); POTASSIUM SERUM 3.4 MMOL/L (3.5-5.1); SODIUM LEVEL 137 MMOL/L (136-145); TOTAL PROTEIN 7.3 G/DL (5.7-8.2)
[2024-01-23] MEDS ORDERED: ISOVUE-370 76% 100ML VIAL As Ordered ONE (18:27)
[2024-01-23] MEDS: PANTOPRAZOLE 40MG VIAL IV ONE (19:36)
[2024-01-23] MEDS: ONDANSETRON 4MG 2ML VIAL IV ONE (19:36)
[2024-01-23] MEDS: NS 1,000 ML IV ONE (19:36)
[2024-01-23] MEDS: MAALOX 30 ML SUSP *UDC PO ONE (19:54)
[2024-01-23] MEDS: POTASSIUM CHLORIDE 10MEQ SR TABLET PO ONE (19:55)
[2024-01-23 20:15] LABS: CK-MB VALUE MASS 1.1 NG/ML (<3.6)
[2024-01-23 20:19] LABS: CPK CREATINE PHOSPHOKINASE 107 U/L (34-145); MB/CK RELATIVE INDEX 1.02 (< OR =4)
[2024-01-23 20:55] LABS: INR 1.13; PARTIAL THROMBOPLASTIN TIME 23.6 SECONDS (24.8-34.2); PROTHROMBIN TIME 14.2 SECONDS (12.5-14.5)
[2024-01-23 21:07] LABS: MB/CK RELATIVE INDEX 0.78 (< OR =4)
[2024-01-23 22:30] VITALS: BP 139/69
[2024-01-23] MEDS ORDERED: ONDA4TAB6 PO (22:37)
[2024-01-23 22:45] VITALS: O2SAT 94
== END 2024-01-23 22:58 | disposition home or self-care (01) ==
LOC: M ED 13:50
DX: R11.10 Vomiting, unspecified (principal); R51.9 Headache, unspecified; E87.6 Hypokalemia; I44.0 Atrioventricular block, first degree; I45.10 Unspecified right bundle-branch block; I10 Essential (primary) hypertension; E78.5 Hyperlipidemia, unspecified; F32.A Depression, unspecified; F41.9 Anxiety disorder, unspecified; M13.80 Other specified arthritis, unspecified site; Z79.83 Long term (current) use of bisphosphonates; Z79.1 Long term (current) use of non-steroidal anti-inflammatories (NSAID); Z79.02 Long term (current) use of antithrombotics/antiplatelets; Z79.899 Other long term (current) drug therapy
CPT/HCPCS: 70450; 71045; 71250; 74177; 80048; 80076; 82550; 82553; 83690; 84484; 85025; 85610; 85730; 93005; 93041; 94760; 96361; 96374; 99285; C9113; J2405; Q9967

== ENCOUNTER 2024-04-05 08:54 | Day surgery (SDC) | payer BC, MEDICARE ==
[~2024-04-05] VITALS: Ht 157.5 cm; Wt 81.6 kg
[~2024-04-05 08:54] MED LIST changes: +CHLO125TA PO; +LINZ145C PO; +ONDA4TAB6 PO; +PARO40TA2 PO; +SIMV20TA22 PO
[2024-04-05] MEDS: LR 1,000 ML IV SCH (09:41)
[2024-04-05] MEDS ORDERED: MIDAZOLAM INJ 2MG/2ML VIAL As Ordered ONE (10:08)
[2024-04-05] MEDS ORDERED: fentaNYL 100 MCG/2 ML INJECTION As Ordered ONE (10:09)
[2024-04-05] MEDS: ceFAZolin SOD 2 GM in IV 1 EA IV ONE (11:20)
[2024-04-05] MEDS: LIDOCAINE 1% SDV 30ML VIAL As Ordered ONE (11:24)
[2024-04-05] MEDS ORDERED: ONDANSETRON 4MG 2ML VIAL As Ordered ONE (11:36)
[2024-04-05] MEDS ORDERED: propofoL 500 MG/50 ML VIAL As Ordered ONE (11:36)
[2024-04-05] MEDS ORDERED: KETOROLAC 60MG 2ML VIAL As Ordered ONE (11:37)
[2024-04-05] MEDS ORDERED: ePHEDrine SULFATE 25 MG/5 ML(5MG/ML) SYRINGE As Ordered ONE (12:20)
[2024-04-05 13:10] VITALS: BP 138/65; TEMP 97.4; O2SAT 98
== END 2024-04-05 13:50 | disposition home or self-care (01) ==
LOC: M SDC 08:54
PROVIDERS: ATTEND Podiatrist Foot & Ankle Surgery
DX: M24.174 Other articular cartilage disorders, right foot (principal); M20.61 Acquired deformities of toe(s), unspecified, right foot; I10 Essential (primary) hypertension; E78.5 Hyperlipidemia, unspecified; F32.A Depression, unspecified; Z79.899 Other long term (current) drug therapy
CPT/HCPCS: 28200; 28208; 76000; 97161; C1713; J0665; J0690; J1100; J1885; J2250; J2405; J3010

== ENCOUNTER → 2025-03-11 | Outpatient (REF) | payer MEDICARE ==
[~2025-03-11] MED LIST changes: +GABA-1172 PO; -GABA-282 PO; +ONDA-282 PO; -ONDA4TAB6 PO
[2025-03-11 13:05] LABS: BASO # 0.1 10^3/uL (0.0-0.2); BASO % 0.6 % (0.0-1.0); EOS # 0.2 10^3/uL (0.0-0.5); EOS % 2.7 % (0.0-3.0); HEMATOCRIT 42.8 % (36.0-47.0); HEMOGLOBIN 14.5 g/dl (12.0-15.5); LYMPH # 2.3 10^3/uL (1.5-5.0); LYMPH % 28.9 % (24.0-44.0); MEAN CORPUSCULAR HEMOGLOBIN 30.2 pg (27.0-33.0); MEAN CORPUSCULAR HGB CONC 33.9 g/dl (32.0-36.5); MEAN CORPUSCULAR VOLUME 89.2 fl (80.0-96.0); MONO # 0.6 10^3/uL (0.0-0.8); MONO % 7.8 % (2.0-8.0); NEUTROPHILS # 4.8 10^3/uL (1.5-8.5); NEUTROPHILS % 59.5 % (36.0-66.0); PLATELET COUNT, AUTOMATED 265 10^3/uL (150-450); WHITE BLOOD COUNT 8.1 10^3/uL (4.0-10.0)
[2025-03-11 13:17] LABS: HEMOGLOBIN A1c 5.3 % (4.0-6.0)
[2025-03-11 13:35] LABS: THYROID STIMULATING HORMONE 3.548 uIU/ML (0.55-4.78); TOTAL 25(OH) VITAMIN D 35.4 NG/ML (20.0-100.0)
[2025-03-11 13:38] LABS: FREE T4 1.31 NG/DL (0.89-1.76)
[2025-03-11 13:41] LABS: ALBUMIN 3.7 G/DL (3.2-5.2); ALKALINE PHOSPHATASE 78 U/L (35-104); ALT/SGPT 15 U/L (7.0-40); AST/SGOT 17 U/L (<34); BILIRUBIN,TOTAL 0.5 MG/DL (0.3-1.2); BLOOD UREA NITROGEN 22 MG/DL (9-23); CALCIUM LEVEL 9.7 MG/DL (8.3-10.6); CARBON DIOXIDE LEVEL 33 MMOL/L (20-31); CHLORIDE LEVEL 101 MMOL/L (98-107); CHOLESTEROL LEVEL 190 MG/DL (<200); CHOLESTEROL RISK RATIO 2.71 (<5); CREATININE FOR GFR 0.73 MG/DL (0.55-1.30); GLOMERULAR FILTRATION RATE > 90.0 (>45); GLUCOSE, FASTING 97 MG/DL (74-106); HDL CHOLESTEROL 70.1 MG/DL (>40); LDL CHOLESTEROL 101.1 MG/DL (<100); NON-HDL-C 119.9 MG/DL; POTASSIUM SERUM 3.7 MMOL/L (3.5-5.1); SODIUM LEVEL 144 MMOL/L (136-145); TOTAL PROTEIN 6.8 G/DL (5.7-8.2); TRIGLYCERIDES LEVEL 94 MG/DL (<150)
== END ==
LOC: M SFHCADAM 08:17
PROVIDERS: ATTEND Physician Assistant Medical
DX: E78.2 Mixed hyperlipidemia (principal); I10 Essential (primary) hypertension; I73.00 Raynaud's syndrome without gangrene; E66.01 Morbid (severe) obesity due to excess calories; F32.1 Major depressive disorder, single episode, moderate; F34.1 Dysthymic disorder; Z79.899 Other long term (current) drug therapy